=== PATIENT | female | born 1960 | race Caucasian/White ===

== ENCOUNTER → 2023-05-09 15:16 | Outpatient (REF) | payer BC, SELFPAY ==
[2023-05-09 16:28] LABS: % Basophils 0.8 % (0-2); % Eosinophils 1.2 % (0-6); % Immature Granulocytes 0.3 % (0-0.5); % Lymphocytes 37.7 % (20.5-51.1); % Monocytes 8.4 % (1.7-9.3); % Neutrophils 51.6 % (42.2-75.2); Absolute Basophils 0.1 10^3/uL (0-0.2); Absolute Eosinophils 0.1 10^3/uL (0-0.7); Absolute Lymphocytes 3.5 10^3/uL (1.2-3.4); Absolute Monocytes 0.8 10^3/uL (0.1-0.6); Absolute Neutrophils 4.8 10^3/uL (1.4-6.5); Hematocrit 42.5 % (37.0-47.0); Hemoglobin 13.1 g/dL (12.0-16.0); Mean Corp Hgb Conc. 30.8 g/dL (33.0-37.0); Mean Corpuscular Hgb 25.6 pg (27.0-31.0); Mean Corpuscular Volume 83.2 fL (81.0-99.0); Mean Platelet Volume 9.9 fL (7.4-10.4); Nucleated Red Blood Cells % 0 %; Platelet Count 412 10^3/uL (130-400); Red Blood Cell Count 5.11 10^6/uL (4.20-5.40); White Blood Cell Count 9.3 10^3/uL (4.8-10.8)
[2023-05-09 16:42] LABS: Erythrocyte Sed Rate 22 mm/hour (0-20)
[2023-05-09 16:47] LABS: ALT (SGPT) 42 U/L (0-35); AST (SGOT) 41 U/L (14-36); Albumin 4.4 g/dl (3.5-5.0); Alkaline Phosphatase 156 U/L (38-126); Blood Urea Nitrogen 18 mg/dl (7-17); Calcium 9.2 mg/dl (8.4-10.2); Carbon Dioxide 28 mmol/L (22-30); Chloride 103 mmol/L (98-107); Glucose 88 mg/dl (70-99); Potassium 4.1 mmol/L (3.5-5.1); Sodium 137 mmol/L (135-145); Total Bilirubin 0.3 mg/dl (0.2-1.3); Total Protein 7.2 g/dl (6.3-8.2); eGFR > 60.00
[2023-05-09 17:02] LABS: Vitamin D, 25-OH*** < 12.8 ng/mL (30-80)
[2023-05-10 08:32] LABS: Glycohemoglobin (HgbA1c) 6.4 % (4.0-5.6)
== END ==
LOC: REG 15:16
PROVIDERS: ATTENDING PHYSICIAN Internal Medicine
DX: R73.9 Hyperglycemia, unspecified (principal); R79.89 Other specified abnormal findings of blood chemistry; E55.9 Vitamin D deficiency, unspecified
CPT/HCPCS: 36415; 80053; 82306; 83036; 85025; 85652

== ENCOUNTER 2023-08-24 21:37 | Emergency (ER) | payer OTHER, SELFPAY ==
[2023-08-24 21:39] VITALS: BP 129/86
--- NOTE | 2023-08-24 23:07 | EDRN ---
Patient refused to stay and wanted to leave. 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
== END 2023-08-24 23:36 | disposition left against medical advice (07) ==
LOC: EMR 21:37
PROVIDERS: EMERGENCY PHYSICIAN Emergency Medicine
DX: M79.642 Pain in left hand (principal)
CPT/HCPCS: 73130

== ENCOUNTER → 2023-10-27 13:31 | Outpatient (REF) | payer OTHER, SELFPAY | LOC: RAD 13:31 | PROVIDERS: ATTENDING PHYSICIAN Psychiatry & Neurology Neurology; FAMILY PHYSICIAN Internal Medicine | DX: M54.6 Pain in thoracic spine (principal); G89.4 Chronic pain syndrome; R10.2 Pelvic and perineal pain; M47.816 Spondylosis without myelopathy or radiculopathy, lumbar region; M54.16 Radiculopathy, lumbar region; M47.817 Spondylosis without myelopathy or radiculopathy, lumbosacral region | CPT/HCPCS: 72072; 72110; 72170 ==

== ENCOUNTER → 2023-11-24 19:03 | Outpatient (REF) | payer OTHER, SELFPAY | LOC: WDC 19:03 | PROVIDERS: ATTENDING PHYSICIAN Internal Medicine | DX: Z12.31 Encounter for screening mammogram for malignant neoplasm of breast (principal) | CPT/HCPCS: 77063; 77067 ==

== ENCOUNTER → 2023-12-16 15:35 | Outpatient (REF) | payer OTHER, SELFPAY | LOC: PAVMRI 15:35 | PROVIDERS: ATTENDING PHYSICIAN Psychiatry & Neurology Neurology; FAMILY PHYSICIAN Internal Medicine | DX: M54.50 Low back pain, unspecified (principal) | CPT/HCPCS: 72148 ==

== ENCOUNTER → 2024-02-24 15:09 | Outpatient (REF) | payer OTHER, SELFPAY ==
[2024-02-24 16:46] LABS: % Basophils 0.5 % (0-2); % Immature Granulocytes 0.6 % (0-0.5); % Lymphocytes 31.9 % (20.5-51.1); % Monocytes 8.1 % (1.7-9.3); % Neutrophils 57.9 % (42.2-75.2); Absolute Basophils 0.1 10^3/uL (0-0.2); Absolute Eosinophils 0.1 10^3/uL (0-0.7); Absolute Immature Granulocytes 0.1 10^3/uL (0-0.05); Absolute Lymphocytes 4.2 10^3/uL (1.2-3.4); Absolute Monocytes 1.1 10^3/uL (0.1-0.6); Absolute Neutrophils 7.6 10^3/uL (1.4-6.5); Hematocrit 42.7 % (37.0-47.0); Hemoglobin 13.2 g/dL (12.0-16.0); Mean Corp Hgb Conc. 30.9 g/dL (33.0-37.0); Mean Corpuscular Hgb 26.1 pg (27.0-31.0); Mean Corpuscular Volume 84.4 fL (81.0-99.0); Nucleated Red Blood Cells % 0 %; Red Blood Cell Count 5.06 10^6/uL (4.20-5.40); Red Cell Dist. Width 14.5 % (11.5-14.5); White Blood Cell Count 13.1 10^3/uL (4.8-10.8)
[2024-02-24 16:53] LABS: C-Reactive Protein < 5.00 mg/L (0.0-10.00)
[2024-02-24 16:55] LABS: ALT (SGPT) 20 U/L (0-35); AST (SGOT) 24 U/L (14-36); Albumin 4.2 g/dl (3.5-5.0); Alkaline Phosphatase 87 U/L (38-126); Blood Urea Nitrogen 27 mg/dl (7-17); Calcium 9.2 mg/dl (8.4-10.2); Carbon Dioxide 32 mmol/L (22-30); Chloride 100 mmol/L (98-107); Glucose 84 mg/dl (70-99); Potassium 4.7 mmol/L (3.5-5.1); Sodium 137 mmol/L (135-145); Total Bilirubin 0.2 mg/dl (0.2-1.3); Total Protein 6.6 g/dl (6.3-8.2); eGFR > 60.00
[2024-02-24 16:57] LABS: Mean Platelet Volume 11.6 fL (7.4-10.4)
[2024-02-24 16:58] LABS: Erythrocyte Sed Rate 11 mm/hour (0-20); Platelet Count 280 10^3/uL (130-400)
[2024-02-24 17:23] LABS: TSH Reflex To Free T4 0.91 uIU/ml (0.47-4.68)
== END ==
LOC: REG 15:09
PROVIDERS: ATTENDING PHYSICIAN Psychiatry & Neurology Neurology; FAMILY PHYSICIAN Internal Medicine
DX: M06.9 Rheumatoid arthritis, unspecified (principal); M79.604 Pain in right leg; G89.29 Other chronic pain
CPT/HCPCS: 36415; 80053; 84443; 85025; 85652; 86140; 86430

== ENCOUNTER → 2024-03-14 12:41 | Outpatient (REF) | payer OTHER, SELFPAY | LOC: RAD 12:41 | PROVIDERS: ATTENDING PHYSICIAN Internal Medicine | DX: M79.606 Pain in leg, unspecified (principal); R20.9 Unspecified disturbances of skin sensation | CPT/HCPCS: 93922; 93925 ==

== ENCOUNTER 2024-04-22 14:50 | Emergency (ER) | payer OTHER, SELFPAY ==
[2024-04-22 14:52] VITALS: BP 142/93; BMI 26.6
[2024-04-22 15:25] LABS: % Basophils 0.6 % (0-2); % Eosinophils 1.3 % (0-6); % Immature Granulocytes 0.6 % (0-0.5); % Lymphocytes 26.4 % (20.5-51.1); % Monocytes 9.1 % (1.7-9.3); Absolute Basophils 0.1 10^3/uL (0-0.2); Absolute Eosinophils 0.1 10^3/uL (0-0.7); Absolute Immature Granulocytes 0.1 10^3/uL (0-0.05); Absolute Lymphocytes 2.2 10^3/uL (1.2-3.4); Absolute Monocytes 0.8 10^3/uL (0.1-0.6); Absolute Neutrophils 5.2 10^3/uL (1.4-6.5); Hematocrit 36.7 % (37.0-47.0); Hemoglobin 11.4 g/dL (12.0-16.0); Mean Corp Hgb Conc. 31.1 g/dL (33.0-37.0); Mean Corpuscular Hgb 26.1 pg (27.0-31.0); Mean Corpuscular Volume 84.2 fL (81.0-99.0); Mean Platelet Volume 9.4 fL (7.4-10.4); Nucleated Red Blood Cells % 0 %; Platelet Count 300 10^3/uL (130-400); Red Blood Cell Count 4.36 10^6/uL (4.20-5.40); White Blood Cell Count 8.4 10^3/uL (4.8-10.8)
[2024-04-22 15:37] LABS: ALT (SGPT) 51 U/L (0-35); AST (SGOT) 49 U/L (14-36); Albumin 4.1 g/dl (3.5-5.0); Alkaline Phosphatase 98 U/L (38-126); Blood Urea Nitrogen 22 mg/dl (7-17); Calcium 9.4 mg/dl (8.4-10.2); Carbon Dioxide 30 mmol/L (22-30); Chloride 102 mmol/L (98-107); Estimated Creatinine Clearance 77 ml/min; Glucose 107 mg/dl (70-99); Potassium 3.9 mmol/L (3.5-5.1); Sodium 137 mmol/L (135-145); Total Bilirubin 0.5 mg/dl (0.2-1.3); Total Protein 6.2 g/dl (6.3-8.2); eGFR > 60.00
[2024-04-22 15:41] LABS: NT-proBNP 129 pg/ml
--- NOTE | 2024-04-22 16:28 | ED.GENMED ---
History of Present Illness
<Smita Velazco PA-C - Last Filed: 04/22/24 19:40>
General
Chief Complaint: Swelling
Source: patient
Exam Limitations: none
Time Seen by Provider: 04/22/24 16:15
History of Present Illness
History of Present Illness:
63yoF with a history of chronic pain on morphine and hypothyroidism presenting for evaluation of bilateral leg swelling. Patient reports having intermittent right lower extremity swelling since having a tibial fracture several years ago. She has
been having bilateral leg swelling over the past 4 days and she feels that her legs are very tight. She did receive a shingles and COVID-vaccine around the time that her symptoms started. She has mostly been in bed the past 4 days due to her
symptoms. She denies any shortness of breath, cough, or chest pain. No prior history of CHF and she does not take any diuretics at baseline.
Past History
<Smita Velazco PA-C - Last Filed: 04/22/24 19:40>
Past History
ED Past Medical History: Psychiatric (Anxiety), Other (Rheumatoid arthritis, chronic pain syndrome/narcotic dependent, osteoarthritis, chronic right foot drop/neuropathy) and Other (Recurrent left prosthetic hip dislocations)
ED Past Surgical History: , Orthopedic (Right knee, lumbar, cervical, left hip replacement November 2014, Left hip revision 2020) and Tonsilectomy
Social History
Tobacco: Non-smoker
Alcohol: Occasional
Drug: Narcotics (Maintained on OxyContin 120 mg twice daily)
Personal:
Living: with family
Employment: Not employed
Family History
Family History: Diabetes and CAD
Phy Exam
<Smita Velazco PA-C - Last Filed: 04/22/24 19:40>
General Physical Exam
General Presentation: well appearing and no apparent distress
General age: appears stated age
General Skin: warm and dry
General Habitus: normal
General Mental: alert
ENT Exam
ENT Exam: normocephalic
Cardiovascular Exam
Cardiovascular Exam: regular rate/rhythm, normal peripheral pulses (2+ DP pulses bilaterally) and other (1+ pitting edema to bilateral lower extremities)
Pulmonary Exam
Pulmonary Exam: lungs clear, no respiratory distress, no rales, no crackles and no rhonchi
Neurological Exam
Neurological Exam: alert
[place] Coma Scale
Eye Opening: Spontaneous
Verbal Response: Oriented
Motor Response: Obeys Commands
GCS Total Score: 15
Skin Exam
Skin Exam: normal color and warm/dry
Psychiatric Exam
Psychiatric Exam: normal mood/affect
<MARGARET Alvares - Last Filed: 04/23/24 00:53>
[place] Coma Scale
GCS Total Score: 15
Scores
<Smita Velazco PA-C - Last Filed: 04/22/24 19:40>
Heart Failure Risk
Heart Failure Risk Score: Not Applicable
Course
<Smita Velazco PA-C - Last Filed: 04/22/24 19:40>
Orders/Labs/Results
Orders:
Orders
04/22/24 14:58
Electrocardiogram (*1) Urgent
Reason for Study: Fatigue / Weakness
04/22/24 14:59
EKG- Treatment ONCE
04/22/24 15:13
Complete Blood Count/With Diff Urgent
Comprehensive Metabolic Panel Urgent
NT-proBNP Urgent
04/22/24 16:26
Venous Doppler Lwr Ext Bilat [US Periph Venous LOWER Ext Michael] Urgent
Comment:
Reason For Exam: bilateral leg swelling
Abnormal Lab Results
04/22/24
15:13
Hgb 11.4 L g/dL
(12.0-16.0)
Hct 36.7 L %
(37.0-47.0)
MCH 26.1 L pg
(27.0-31.0)
MCHC 31.1 L g/dL
(33.0-37.0)
RDW 15.0 H %
(11.5-14.5)
Abs Immat Gran (auto) 0.1 H 10^3/uL
(0-0.05)
Absolute Monos (auto) 0.8 H 10^3/uL
(0.1-0.6)
Immature Gran % 0.6 H %
(0-0.5)
BUN 22 H mg/dl
(7-17)
Creatinine 0.4 L mg/dL
(0.6-1.0)
Glucose 107 H mg/dl
(70-99)
AST 49 H U/L
(14-36)
ALT 51 H U/L
(0-35)
Total Protein 6.2 L g/dl
(6.3-8.2)
04/22/24 15:13
04/22/24 15:13
Vital Signs
Initial and Last Documented VS:
Initial Vital Signs
Temp Pulse Resp BP Pulse Ox
98.3 F 92 18 142/93 95
04/22/24 14:52 04/22/24 14:52 04/22/24 14:52 04/22/24 14:52 04/22/24 14:52
Last Documented Vital Signs
Temp Pulse Resp BP Pulse Ox
98.3 F 92 18 121/74 96
04/22/24 14:52 04/22/24 14:52 04/22/24 14:52 04/22/24 19:28 04/22/24 19:30
<MARGARET Alvares - Last Filed: 04/23/24 00:53>
Orders/Labs/Results
Orders:
Orders
04/22/24 14:58
Electrocardiogram (*1) Urgent
Reason for Study: Fatigue / Weakness
04/22/24 14:59
EKG- Treatment ONCE
04/22/24 15:13
Complete Blood Count/With Diff Urgent
Comprehensive Metabolic Panel Urgent
NT-proBNP Urgent
04/22/24 16:26
Venous Doppler Lwr Ext Bilat [US Periph Venous LOWER Ext Michael] Urgent
Comment:
Reason For Exam: bilateral leg swelling
Abnormal Lab Results
04/22/24
15:13
Hgb 11.4 L g/dL
(12.0-16.0)
Hct 36.7 L %
(37.0-47.0)
MCH 26.1 L pg
(27.0-31.0)
MCHC 31.1 L g/dL
(33.0-37.0)
RDW 15.0 H %
(11.5-14.5)
Abs Immat Gran (auto) 0.1 H 10^3/uL
(0-0.05)
Absolute Monos (auto) 0.8 H 10^3/uL
(0.1-0.6)
Immature Gran % 0.6 H %
(0-0.5)
BUN 22 H mg/dl
(7-17)
Creatinine 0.4 L mg/dL
(0.6-1.0)
Glucose 107 H mg/dl
(70-99)
AST 49 H U/L
(14-36)
ALT 51 H U/L
(0-35)
Total Protein 6.2 L g/dl
(6.3-8.2)
04/22/24 15:13
04/22/24 15:13
Vital Signs
Initial and Last Documented VS:
Initial Vital Signs
Temp Pulse Resp BP Pulse Ox
98.3 F 92 18 142/93 95
04/22/24 14:52 04/22/24 14:52 04/22/24 14:52 04/22/24 14:52 04/22/24 14:52
Last Documented Vital Signs
Temp Pulse Resp BP Pulse Ox
98.3 F 92 18 121/74 96
04/22/24 14:52 04/22/24 14:52 04/22/24 14:52 04/22/24 19:28 04/22/24 19:30
<Smita Velazco PA-C - Last Filed: 04/22/24 19:40>
MDM/Problems Addressed
Differential Diagnosis Includes:
63yoF here with bilateral leg swelling x 4 days. Denies CP/SOB and has no prior history of CHF. VSS. She is well appearing in no distress. There is mild edema noted bilaterally. Lower extremities are neurovascularly intact with palpable DP pulses.
No rales present on lung exam. Differential diagnosis includes: dependent edema, DVT, CHF, hypoalbuminemia
Initial ED plan: Labs and EKG obtained in triage. Mild transaminitis noted which is consistent with prior labs. Renal function and BNP normal. EKG shows NSR without ischemic changes. Will check bilateral venous duplex.
<Smita Velazco PA-C - Last Filed: 04/22/24 19:40>
*EKG
Interpreted by ED Provider?: Yes
EKG Intrepretation Date: 04/22/24
Heart Rate: 92
Rate: normal
Rhythm: sinus
[place]: normal axis
Interval: normal interval
QRS Pattern: normal QRS
Ischemia: no ischemia
*Critical Care Note
Total Time (30-74mins, 75-104mins- exclusive of procedures): Not Applicable
<MARGARET Alvares - Last Filed: 04/23/24 00:53>
Update Note
Update Note:
Received signout of patient. Ultrasound negative for DVT incidental small popliteal cyst on the left. Patient in no acute distress has strong pulses bilaterally no complaints shortness of breath stable for discharge home with elevation compression
stockings and to return if any worsening of symptoms discussed with patient to follow-up with family doctor further evaluation.
ED Attending Note
<Smita Velazco PA-C - Last Filed: 04/22/24 19:40>
-
Portions of this chart may have been created with voice recognition software.� Occasional wrong word or��sound alike� substitutions may have occurred due to the inherent limitations of voice recognition software.
Discharge Plan
Departure
Patient Disposition: Home (Routine Discharge)
Date of Disposition: 04/22/24
Time of Disposition: 19:35
Patient with high blood pressure during this ER visit?: Yes
Condition: Fair
Covid-19: Not Applicable
Discharge Problem:
Edema
Instructions: Dependent Edema (DC), BLOOD PRESSURE
Prescriptions:
No Action
oxymetazoline [Afrin Sinus (oxymetazoline)] 30 SPRAYS/15 ML spray,non-aerosol
2 sprays intranasal PRN PRN (Reason: nasl congestion)
zolpidem 5 MG tablet
5 mg PO HS
acetaminophen 325 MG tablet
650 mg PO Q4HPRN PRN (Reason: for mild pain or fever >100.4F) 0RF
prednisone 10 MG tablet
20 mg PO DAILY 0RF
clonazepam 0.5 MG tablet
0.5 mg PO QID 0RF
alum-mag hydroxide-simeth [Mag-Al Plus] 30 ML suspension
30 ml PO Q4HPRN PRN (Reason: INDIGESTION) 0RF
oxycodone-acetaminophen 5 MG/325 MG tablet
1 - 2 tab PO Q4HPRN PRN (Reason: breakthrough pain ) Qty: 1 0RF
oxycodone [OxyContin] 80 MG tablet,oral only,ext.rel.12 hr
180 mg PO BID
clonazepam 0.5 MG tablet
0.5 mg PO Q6HPRN PRN (Reason: anxiety) Qty: 12 0RF
levothyroxine 75 MCG tablet
75 mcg PO DAILY AT 0700 Qty: 0 0RF
Referrals:
Bryant Jorgensen MD [Family Provider] -
Activity Restrictions/Additional Instructions:
Keep elevated as much as possible
Please follow up with your family doctor for further reevaluation in the next several days. call tomorrow to make an appointment.
return if any worsening of symptoms
Interventions
Interventions:
*Risk Screen - Suicide Last Done: 04/22/24 14:52
*General Assessment Last Done: 04/22/24 16:54
*Neglect/Abuse Screening Last Done: 04/22/24 16:54
ED- Fall Risk Assessment Last Done: 04/22/24 17:04
*ED COVID-19 Vaccine History Last Done: 04/22/24 14:52
*Nursing Disposition Last Done: 04/22/24 20:03
ED- Cardiac Assessment Last Done: 04/22/24 16:54
ED- Pulmonary Assessment Last Done: 04/22/24 16:54
ED-Skin Assessment Last Done: 04/22/24 16:54
Discharge Date and Time
Discharge Date/Time: 04/22/24 20:05
Print Language: CHADIAN
[2024-04-22 16:53] VITALS: BP 135/86
[2024-04-22 17:00] VITALS: BP 134/90
[2024-04-22 19:28] VITALS: BP 121/74
== END 2024-04-22 20:05 | disposition home or self-care (01) ==
LOC: EMR 14:50
PROVIDERS: Emergency Medicine; EMERGENCY PHYSICIAN Emergency Medicine; FAMILY PHYSICIAN Internal Medicine
DX: R60.0 Localized edema (principal); M71.22 Synovial cyst of popliteal space [Baker], left knee; E03.9 Hypothyroidism, unspecified; M06.9 Rheumatoid arthritis, unspecified; G89.4 Chronic pain syndrome; Z79.891 Long term (current) use of opiate analgesic
CPT/HCPCS: 99284; 80053; 83880; 85025; 93005; 93970

== ENCOUNTER → 2024-04-24 16:31 | Outpatient (REF) | payer OTHER, SELFPAY | LOC: RAD 16:31 | PROVIDERS: ATTENDING PHYSICIAN Student in an Organized Health Care Education/Training Program; FAMILY PHYSICIAN Internal Medicine; REFERRING PHYSICIAN Psychiatry & Neurology Neurology | DX: I73.9 Peripheral vascular disease, unspecified (principal) | CPT/HCPCS: 75635; Q9967 ==

== ENCOUNTER → 2024-05-24 15:44 | Outpatient (REF) | payer OTHER, SELFPAY | LOC: REG 15:44 | PROVIDERS: ATTENDING PHYSICIAN Orthopaedic Surgery; FAMILY PHYSICIAN Internal Medicine | DX: M25.521 Pain in right elbow (principal) | CPT/HCPCS: 87070; 87075; 87205 ==

== ENCOUNTER 2024-06-12 07:36 | Outpatient (RCR) | payer OTHER, SELFPAY | END 2024-06-12 23:59 | disposition home or self-care (01) | LOC: RPT 07:36 | PROVIDERS: ATTENDING PHYSICIAN Physician Assistant Surgical; FAMILY PHYSICIAN Internal Medicine | DX: M54.16 Radiculopathy, lumbar region (principal); Z73.6 Limitation of activities due to disability | CPT/HCPCS: 97163 ==

== ENCOUNTER 2024-06-21 13:51 | Outpatient (RCR) | payer OTHER, SELFPAY | END 2024-06-21 23:59 | disposition home or self-care (01) | LOC: RPT 13:51 | PROVIDERS: ATTENDING PHYSICIAN Physician Assistant Surgical; FAMILY PHYSICIAN Internal Medicine | DX: M54.16 Radiculopathy, lumbar region (principal); Z73.6 Limitation of activities due to disability | CPT/HCPCS: 97010; 97110; 97112; 97530 ==

== ENCOUNTER 2024-07-05 17:24 | Emergency (ER) | payer OTHER, SELFPAY ==
[2024-07-05 17:42] VITALS: BP 138/79
[2024-07-05 20:32] VITALS: BP 120/100
[2024-07-05 21:15] VITALS: BP 114/90
[2024-07-05 22:00] VITALS: BP 123/83
--- NOTE | 2024-07-05 23:03 | ED.GENMED ---
History of Present Illness
General
Chief Complaint: Medication Reaction
Source: patient
Exam Limitations: none
Time Seen by Provider: 07/05/24 22:48
Nursing documentation reviewed up to this point in time: agreed with
History of Present Illness
History of Present Illness:
64-year-old female came into the emergency department for serotonin syndrome rule out. Patient was recently started on a fentanyl patch and has had chills and decreased appetite. Denies any fever. Patient states that she has not been eating
normally. Patient reports that she has been on chronic pain medications to help with her chronic pain. She sees Dr. Jorgensen and Dr. De Anda who prescribed her pain management. She states that she has had over 20 surgeries and requires daily pain
management.
Past History
Past History
ED Past Medical History: Psychiatric (Anxiety), Other (Rheumatoid arthritis, chronic pain syndrome/narcotic dependent, osteoarthritis, chronic right foot drop/neuropathy) and Other (Recurrent left prosthetic hip dislocations)
ED Past Surgical History: , Orthopedic (Right knee, lumbar, cervical, left hip replacement November 2014, Left hip revision 2020) and Tonsilectomy
Social History
Tobacco: Non-smoker
Alcohol: Occasional
Drug: Narcotics (Maintained on OxyContin 120 mg twice daily)
Personal:
Living: with family
Employment: Not employed
Family History
Family History: Diabetes and CAD
Review of Systems
Review of Systems
Allergies reviewed?: Yes
All Other Systems: ROS reviewed and negative except as documented in HPI and ROS
Constitutional: Reports weight loss and chills; Denies fever or fatigue
EENT: Reports no symptoms
Respiratory: Reports no symptoms
Cardiac: Reports no symptoms
ABD/GI: Reports no symptoms
: Reports no symptoms; Denies frequency, difficulty voiding or urgency
Musculoskeletal: Reports no symptoms; Denies joint swelling or muscle stiffness
Skin: Reports no symptoms
Neurological: Reports no symptoms
Endocrine: Reports no symptoms
Hematologic/Lymphatic: Reports no symptoms
Psychiatric: Reports anxiety
Phy Exam
General Physical Exam
General Presentation: well appearing and mild distress
General age: appears stated age
General Skin: warm and dry
General Habitus: normal
General Mental: alert
General Hydration: appears well hydrated
ENT Exam
ENT Exam: EOMI, pharynx normal, neck supple and normocephalic
Eye Exam
Eye Exam: PERRL and EOMI
Cardiovascular Exam
Cardiovascular Exam: regular rate/rhythm and no edema
Pulmonary Exam
Pulmonary Exam: lungs clear, no respiratory distress, no rales, no crackles, no rhonchi, no stridor, no wheezing and no cough
Gastrointestinal Exam
Gastrointestinal Exam: normal bowel sounds, non tender, soft, no organomegaly, no pulsatile mass and non distended
Neurological Exam
Neurological Exam: alert and oriented x3
Musculoskeletal Exam
Musculoskeletal Exam: full ROM and no edema
Skin Exam
Skin Exam: normal color and warm/dry
Psychiatric Exam
Psychiatric Exam: normal mood/affect
Course
Orders/Labs/Results
Orders:
Orders
07/05/24 22:59
Urinalysis Reflex To Culture Urgent
Date Specimen was Collected: 07/06/24
Time Specimen was Collected: 01:13
CR Chest - 2 Views Urgent
Comment:
Reason For Exam: chills
07/05/24 23:58
CKMB [CPK Isoenzyme] Urgent
Complete Blood Count/With Diff Urgent
Comprehensive Metabolic Panel Urgent
Prothrombin Time Urgent
Abnormal Lab Results
07/05/24
23:58
MCV 79.0 L fL
(81.0-99.0)
MCH 24.8 L pg
(27.0-31.0)
MCHC 31.4 L g/dL
(33.0-37.0)
RDW 14.8 H %
(11.5-14.5)
Plt Count 410 H 10^3/uL
(130-400)
Sodium 146 H mmol/L
(135-145)
Chloride 114 H mmol/L
(98-107)
Carbon Dioxide 21 L mmol/L
(22-30)
Creatinine 0.4 L mg/dL
(0.6-1.0)
07/05/24 23:58
07/05/24 23:58
Vital Signs
Initial and Last Documented VS:
Initial Vital Signs
Temp Pulse Resp BP Pulse Ox
97.7 F 97 18 138/79 100
07/05/24 17:42 07/05/24 17:42 07/05/24 17:42 07/05/24 17:42 07/05/24 17:42
Last Documented Vital Signs
Temp Pulse Resp BP Pulse Ox
97.6 F 85 26 124/80 94
07/05/24 20:32 07/06/24 01:45 07/06/24 01:45 07/06/24 01:00 07/06/24 01:00
*Critical Care Note
Total Time (30-74mins, 75-104mins- exclusive of procedures): Not Applicable
Update Note
Update Note:
Concern for serotonin syndrome. I do not feel that she meets criteria. She is not having mental status change. Nor is she having agitation or restlessness. She has no resting tremor or akathisia. No diaphoresis hypertension fever new onset
headache.
On physical exam she does not have hypertension, hypotension, or hyperthermia. She is not tachypneic or tachycardic. There is no diaphoresis or myoclonus. No rigidity. No hyperactive bowel sounds.
ED Attending Note
-
Portions of this chart may have been created with voice recognition software.� Occasional wrong word or��sound alike� substitutions may have occurred due to the inherent limitations of voice recognition software.
Discharge Plan
Departure
Patient Disposition: Home (Routine Discharge)
Date of Disposition: 07/06/24
Time of Disposition: 01:28
Patient with high blood pressure during this ER visit?: Yes
Condition: Good
Discharge Problem:
Medication reaction
Prescriptions:
No Action
zolpidem 5 MG tablet
10 mg PO HSPRN PRN (Reason: sleep)
clonazepam 0.5 MG tablet
0.5 mg PO QID 0RF
prednisone 10 MG tablet
10 mg PO DAILYPRN PRN (Reason: ra flare up)
furosemide [Lasix] 40 mg Tablet
40 mg PO DAILY
oxycodone 5 mg Tablet
5 mg PO Q6HPRN PRN (Reason: severe pain)
fentanyl 12 mcg/hr Patch 72 Hour
2 patch TRANSDERMAL Q72H
omeprazole 40 mg Capsule,Delayed Release(Dr/Ec)
40 mg PO DAILY
gabapentin 300 mg Capsule
600 mg PO BID
fluticasone propionate [Flonase] 50 mcg/actuation [place],Suspension
1 spray INTRANASAL DAILYPRN PRN (Reason: allergies)
levothyroxine 75 MCG tablet
75 mcg PO DAILY AT 0700 Qty: 0 0RF
Referrals:
Bryant Jorgensen MD [Family Provider] -
Interventions
Interventions:
*Risk Screen - Suicide Last Done: 07/05/24 17:42
*General Assessment Last Done: 07/05/24 17:42
*Neglect/Abuse Screening Last Done: 07/05/24 17:42
*ED- Fall Risk Assessment Last Done: 07/05/24 17:42
*ED COVID-19 Vaccine History Last Done: 07/05/24 21:45
*Nursing Disposition Last Done: 07/06/24 01:55
ED-Skin Assessment Last Done: 07/05/24 23:30
ED- Pulmonary Assessment Last Done: 07/05/24 23:30
ED-EENT Assessment Last Done: 07/05/24 21:45
Discharge Date and Time
Discharge Date/Time: 07/06/24 01:55
Print Language: LAO
[2024-07-05 23:46] VITALS: BP 132/64
[2024-07-06 00:23] LABS: ALT (SGPT) 14 U/L (0-35); AST (SGOT) 19 U/L (14-36); Albumin 4.6 g/dl (3.5-5.0); Alkaline Phosphatase 98 U/L (38-126); Blood Urea Nitrogen 11 mg/dl (7-17); Calcium 9.7 mg/dl (8.4-10.2); Carbon Dioxide 21 mmol/L (22-30); Chloride 114 mmol/L (98-107); Glucose 97 mg/dl (70-99); INR 0.98; PT 13.3 Sec (11.4-14.6); Sodium 146 mmol/L (135-145); Total Bilirubin 0.5 mg/dl (0.2-1.3); Total Protein 6.9 g/dl (6.3-8.2); eGFR > 60.00
[2024-07-06 00:34] LABS: % Basophils 0.7 % (0-2); % Eosinophils 1.1 % (0-6); % Immature Granulocytes 0.2 % (0-0.5); % Lymphocytes 27.6 % (20.5-51.1); % Monocytes 5.6 % (1.7-9.3); % Neutrophils 64.8 % (42.2-75.2); Absolute Basophils 0.1 10^3/uL (0-0.2); Absolute Eosinophils 0.1 10^3/uL (0-0.7); Absolute Lymphocytes 2.4 10^3/uL (1.2-3.4); Absolute Monocytes 0.5 10^3/uL (0.1-0.6); Absolute Neutrophils 5.5 10^3/uL (1.4-6.5); Hematocrit 41.4 % (37.0-47.0); Mean Corp Hgb Conc. 31.4 g/dL (33.0-37.0); Mean Corpuscular Hgb 24.8 pg (27.0-31.0); Mean Platelet Volume 10.4 fL (7.4-10.4); Nucleated Red Blood Cells % 0 %; Platelet Count 410 10^3/uL (130-400); Red Blood Cell Count 5.24 10^6/uL (4.20-5.40); Red Cell Dist. Width 14.8 % (11.5-14.5); White Blood Cell Count 8.5 10^3/uL (4.8-10.8)
[2024-07-06 00:39] LABS: Total CK 30 U/L (30-135)
[2024-07-06 01:00] VITALS: BP 124/80
[2024-07-06 01:32] LABS: Urine Albumin Negative (Neg - Trace); Urine Bilirubin Negative (Negative); Urine Character Clear (Clear); Urine Color Yellow; Urine Glucose Negative (Negative); Urine Ketone Negative (Negative); Urine Leukocyte Negative (Negative); Urine Nitrite Negative (Negative); Urine Occult Blood Negative (Negative); Urine Specific Gravity 1.015 (<1.030); Urine Urobilinogen Negative (Neg - 1+); Urine pH 6.5 (5.0-9.0)
== END 2024-07-06 01:55 | disposition home or self-care (01) ==
LOC: EMR 17:24
PROVIDERS: EMERGENCY PHYSICIAN Student in an Organized Health Care Education/Training Program; FAMILY PHYSICIAN Internal Medicine
DX: T50.905A Adverse effect of unspecified drugs, medicaments and biological substances, initial encounter (principal); Y92.9 Unspecified place or not applicable; F41.9 Anxiety disorder, unspecified; M06.9 Rheumatoid arthritis, unspecified; Z82.49 Family history of ischemic heart disease and other diseases of the circulatory system; Z83.3 Family history of diabetes mellitus
CPT/HCPCS: 99283; 71046; 80053; 81003; 82550; 85025; 85610

== ENCOUNTER 2024-08-16 11:54 | Outpatient (RCR) | payer OTHER, SELFPAY | END 2024-08-16 23:59 | disposition home or self-care (01) | LOC: RPT 11:54 | PROVIDERS: ATTENDING PHYSICIAN Physician Assistant Surgical; FAMILY PHYSICIAN Internal Medicine | DX: M54.16 Radiculopathy, lumbar region (principal); M25.571 Pain in right ankle and joints of right foot; Z73.6 Limitation of activities due to disability; M25.572 Pain in left ankle and joints of left foot; R26.81 Unsteadiness on feet | CPT/HCPCS: 97164; 97530 ==

== ENCOUNTER → 2024-10-09 16:39 | Outpatient (REF) | payer OTHER, SELFPAY | LOC: RAD 16:39 | PROVIDERS: ATTENDING PHYSICIAN Student in an Organized Health Care Education/Training Program; FAMILY PHYSICIAN Internal Medicine | DX: M79.661 Pain in right lower leg (principal) | CPT/HCPCS: 93971 ==

== ENCOUNTER → 2024-12-15 11:02 | Outpatient (REF) | payer OTHER, SELFPAY | LOC: PAVMRI 11:02 | PROVIDERS: ATTENDING PHYSICIAN Student in an Organized Health Care Education/Training Program; FAMILY PHYSICIAN Internal Medicine; OTHER PHYSICIAN Psychiatry & Neurology Neurology | DX: M25.571 Pain in right ankle and joints of right foot (principal) | CPT/HCPCS: 73721 ==